=== PATIENT | female | born 2005 | race Caucasian/White ===

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

== ENCOUNTER 2023-11-25 17:03 | Emergency (ER) | payer OTHER, SELFPAY ==
[2023-11-25 17:15] VITALS: BP 157/92; PULSE 98; RESP 18; TEMP 36.6; O2SAT 99; BMI 30.6
--- NOTE | 2023-11-25 17:16 | ED_ITS ---
HPI - General Adult General Chief complaint: General Medical Stated complaint: ? uti Time Seen by Provider: 11/25/23 19:00 Source: patient and family (patient's mother) Mode of arrival: ambulatory Limitations: no limitations History of Present Illness ED Provider: Valerie Teixeira PA-C HPI narrative: Patient is a 18 year old assigned female at with no reported medical history presenting to the emergency department today with an itchy / burning rash around her vaginal area. Patient states that over the last week she has had a rash around her vaginal area with burning and itching. Patient denies any dizziness, lightheadedness, abdominal pain, nausea, vomiting, fever, chills, blurry vision, double vision, loss of vision, chest pain, difficulty breathing, shortness of breath, back pain, night sweats, pain with urination, increased urinary frequency, increased urinary urgency, blood in her urine or stool, syncope or a near syncopal episode, recent trauma or falls, bowel incontinence, bladder incontinence, or any other complaints at this time. Onset (ago): week(s) (1) Location: genitals Relieving factors: none Exacerbating factors: none Associated symptoms: rash Treatments prior to arrival: none Related Data Home Medications ?Medication ?Instructions ?Recorded ?Confirmed methimazole 5 mg tablet 2.5 mg PO DAILY 03/06/20 11/16/21 Previous Rx's ?Medication ?Instructions ?Recorded ondansetron 4 mg disintegrating 4 mg PO Q6-8H PRN nausea and 05/22/21 tablet vomiting #14 tabs cephalexin 500 mg capsule 500 mg PO BID #14 caps 12/21/21 prenat.vits,rehan,wgo-ecny-qxmaa 1 tab PO DAILY #90 tabs 12/21/21 morphine 15 mg immediate release 15 mg PO Q4-6H PRN pain #8 tabs 02/20/22 tablet cefuroxime axetil 500 mg tablet 500 mg PO BID #14 tabs 04/26/22 nitrofurantoin 100 mg PO Q12H 7 days #14 caps 06/24/22 monohydrate/macrocrystals 100 mg capsule (Macrobid) cefuroxime axetil 250 mg tablet 250 mg PO BID 7 days #14 tabs 11/25/23 fluconazole 150 mg tablet 150 mg PO Q3D 2 doses #2 tabs 11/25/23 Allergies Allergy/AdvReac Type Severity Reaction Status Date / Time No Known Allergies Allergy Verified 11/25/23 17:17 Review of Systems Constitutional: Constitutional: Reports no additional constitutional complaints, Denies chills, Denies fever(s) and Denies night sweats Eyes: Eyes: Reports no additional eye complaints, Denies blurry vision, Denies change in vision, Denies diplopia, Denies eye discharge, Denies loss of vision and Denies eye pain ENT: Denies dizziness Cardiovascular: Cardiovascular: Reports no additional cardiovascular complaints, Denies chest pain, Denies lightheadedness, Denies Loss of Consciousness and Denies dyspnea Respiratory: Respiratory: Reports no additional respiratory complaints and Denies dyspnea Gastrointestinal: Gastrointestinal: Reports no additional gastrointestinal complaints, Denies abdominal pain, Denies melena, Denies hematochezia, Denies change in bowel habits and Denies change in stool character Genitourinary: Genitourinary: Denies hematuria, Denies urinary frequency, Denies dysuria, Denies urinary incontinence, Denies urinary hesitancy, Denies urinary urgency and Reports vaginal pruritus Comments: vaginal rash Musculoskeletal: Musculoskeletal: Reports no additional musculoskeletal complaints, Denies numbness and Denies tingling Neurologic: Denies dizziness, Denies loss of vision, Denies numbness and Denies tingling Psychiatric: Psychiatric: Reports no additional psychiatric complaints Endocrine: Endocrine: Reports no additional endocrine complaints Hematologic/Lymphatic: Hematologic/Lymphatic: Reports no additional hemat ologic/lymphatic complaints Allergic/Immunologic: Allergic/Immunologic: Reports no additional allergic/immunologic complaints PMFSH Past Medical History Attestation statement: The following information was validated with the patient. (all information validated with the patient's mother) Source: old records reviewed, obtained from family (patient's mother provided additional history and confirmed the history provided by the patient) and nurs ing notes reviewed Medical History Graves disease Graves disease Social History Social History Household Members Other:: Lives w/ mom, brother Alcohol intake: never Patient Tobacco Use Status: Never used Tobacco Advance Directives: No Advance Directives Information Provided: No Physical Exam ED Vital Signs: Vital Signs - 24 hr 11/25/23 17:15 11/25/23 19:10 Temperature 98 F 98 F Pulse Rate 98 98 Respiratory Rate 18 18 Blood Pressure 157/92 H 157/92 H Pulse Oximetry 99 99 Oxygen Delivery Method Room Air Room Air BMI result Body Mass Index 30.6 Const General: cooperative, no acute distress, alert and awake Nutritional Appearance: well nourished Orientation/consciousness: patient oriented x3 Limitations: no limitations HENMT Head: Yes normal to inspection and Yes atraumatic Ears: hearing grossly normal bilaterally and external ears normal General nose exam: Normal external nose present, no nasal discharge noted and no epistaxis Face and sinus: Yes normal facial exam, No abrasion and No laceration Mouth: Normal oral and palatal mucosa present, no drooling and no muffled voice Eyes General: appearance normal, both eyes and all related structures Periorbital: periorbital findings normal Eyelids: Yes eyelids normal Conjunctivae: conjunctivae normal Pupils: Equal, round and reactive pupils present EOM: EOMs intact bilaterally Neck Neck: Yes normal visual inspection, Yes full ROM and Yes no lymphadenopathy Chest Chest palpation & inspection: normal inspection of the chest Resp Effort & Inspection: normal respiratory effort and able to speak in complete sentences GI Inspection: Yes normal to inspection Neuro General: patient oriented x3 and moves all extremities Cranial nerves: Yes Equal, round and reactive pupils present Cognition (Neuro): normal cognition Extrem General: Yes normal to inspection, Yes full ROM and Yes capillary refill normal Psych Appearance: grossly normal Mental Status: mental status grossly normal Affect: normal affect Attitude: cooperative Thought process: Normal thought process present Thought content: Normal thought content present Insight: Good insight present (Psych) Course Course Course Narrative: RME performed by Valerie Teixeira PA-C. Patient is a 18 year old assigned female at presenting to the emergency department with an itchy vaginal rash. Detailed physical exam and review of systems are deferred to the medical lab director. Labs ordered. Patient placed back in the waiting room pending room availability and results. Medical Decision Making Medical Decision Making MDM Narrative: Patient is a 18 year old assigned female at with no reported medical history presenting to the emergency department today with a rash to the vaginal area. Patient's physical exam was unremarkable. Patient deferred exam. Stephanie angel's urine showed a UTI and her vaginal swabs showed yeast. I explained my physical exam findings as well as all test results to the patient and the patient's mother. I answered all questions asked by the patient and the patient's mother. I stressed the importance of the patient taking her medication as directed (either prescribed or as the over the counter packaging recommends). I stressed the importance of the patient following up with her primary care provider. I stressed the importance of the patient returning to the emergency department immediately if her symptoms were to worsen or if she were to develop any dizziness, shortness of breath, difficulty breathing, chest pain, blurry vision, loss of vision, nausea, vomiting, abdominal pain, fever, chills, back pain, or any other complaints. Patient and the patient's mother verbalized agreement and understanding with this treatment plan and discharge. Differential Diagnosis Differential Diagnoses: The differential diagnosis associated with the presentation includes Yeast infection Urinary tract infection BV Admission/Observation Consideration of admission/observation: Escalation of care including admission/observation considered Patient would have been admitted to the hospital had her work up had any findings where hospital admission was appropriate and her clinical presentation warranted hospital admission. Lab Data [facility] Lab Attestation statement: I reviewed the patient's lab results. My interpretation of these results are in the [facility] Rationale portion of this note. Labs: Lab Results 11/25/23 Range/Units 17:44 Urine Color Yellow Urine Appearance Cloudy Urine pH 6.5 (5.0-9.0) Ur Specific [place] >= 1.030 H (1.005-1.025) Urine Protein 30 (1+) H (Neg-Trace) mg/dL Urine Glucose (UA) Negative (Negative) mg/dL Urine Ketones Negative (Negative) mg/dL Urine Blood Trace H (Negative) Urine Nitrite Negative (Negative) Ur Leukocyte Esterase Large (3+) H (Negative) Urine RBC >20 H (0-2) /HPF Urine WBC >50 H (0-5) /HPF Ur Squamous Epith Cells 11-20 (0-2) /HPF Urine Bacteria 2+ (None Seen) Hyaline Casts 0-2 (0-2) /LPF Independent Historian Clinical information obtained from an independent historian. History obtained from or confirmed by: Parent (patient's mother provided additional history and confirmed the history provided by the patient.) Prescription Management I considered prescription management with: Antibiotic (patient prescribed an antibiotic for UTI) and Other (patient prescribed an antifungal) Discharge Plan Discharge Clinical Impression: Yeast infection, UTI (urinary tract infection) Patient Disposition: Home, Self-Care Instructions: Urinary Tract Infection in Women (DC), Yeast Infection (ED) Additional Instructions: Follow up with your primary care provider. Return to the emergency department immediately if your symptoms worsen or if you develop any dizziness, shortness of breath, difficulty breathing, chest pain, blurry vision, loss of vision, nausea, vomiting, abdominal pain, fever, chills, back pain, or any other complaints. Prescriptions: New cefuroxime axetil 250 mg tablet 250 mg PO BID 7 Days Qty: 14 0RF fluconazole 150 mg tablet 150 mg PO Q3D Qty: 2 0RF No Action methimazole 5 mg tablet 2.5 mg PO DAILY ondansetron 4 mg tablet,disintegrating 4 mg PO Q6-8H PRN (Reason: nausea and vomiting) Qty: 14 0RF cefuroxime axetil 500 mg tablet 500 mg PO BID Qty: 14 0RF prenat.vits,rehan,wep-xarl-dkgnj Tablet 1 tab PO DAILY Qty: 90 0RF cephalexin 500 mg capsule 500 mg PO BID Qty: 14 0RF morphine 15 mg tablet 15 mg PO Q4-6H PRN (Reason: pain) Qty: 8 0RF Rx Instructions: The patient may ask for partial fill; Partial Fill upon patient request. nitrofurantoin monohyd/m-cryst [Macrobid] 100 mg capsule 100 mg PO Q12H 7 Days Qty: 14 0RF Rx Instructions: must administer with a meal/food Referrals: [facility] Family Medicine [Provider Group] (Call to establish and follow up with a primary care provider. If you already have a primary care provider, please follow up with them.) [facility] [Provider Group] (Call to establish and follow up with a primary care provider. If you already have a primary care provider, please follow up with them.) [facility] [Provider Group] (Call to establish and follow up with a primary care provider. If you already have a primary care provider, please follow up with them.) Interventions: ED Discharge Assessment Last Done: 11/25/23 19:10 Discharge Date/Time: 11/25/23 19:10 Print Language: Amharic
[2023-11-25 18:02] LABS: Appearance Urine Cloudy; Color Urine Yellow; Glucose Urine UA Negative (Negative); Leukocyte Esterase Urine Large (3+) (Negative); Nitrite Urine Negative (Negative); PH 6.5 (5.0-9.0); Specific Gravity - Urine >= 1.030 (1.005-1.025); UMIC TRIGGER UACC YES; Urine Blood Trace (Negative); Urine Ketones Negative (Negative); Urine Protein 30 (1+) mg/dL (Neg-Trace)
[2023-11-25 18:06] LABS: Bacteria Urine 2+ (None Seen); Hyaline Casts Urine 0-2 /LPF (0-2); RBC Urine >20 /HPF (0-2); UACC Culture Trigger YES; WBC Urine >50 /HPF (0-5)
[2023-11-25 19:10] VITALS: BP 157/92; PULSE 98; RESP 18; TEMP 36.6; O2SAT 99
[2023-11-26 11:36] LABS: CT PCR NOT DETECTED (Not Detect.); NG PCR NOT DETECTED (Not Detect.)
[2023-11-26 13:14] LABS: Bacterial Vaginosis PCR NEGATIVE (Negative); Candida Group PCR DETECTED (Not Detect); Candida glab krusei PCR NOT DETECTED (Not Detect); Trichomonas vaginalis PCR NOT DETECTED (Not Detect)
== END 2023-11-25 19:10 | disposition home or self-care (01) ==
PROVIDERS: Physician Assistant Medical; Emergency Provider Emergency Medicine; PCP Pediatrics
DX: B37.31 Acute candidiasis of vulva and vagina (principal); N39.0 Urinary tract infection, site not specified; L29.2 Pruritus vulvae; Z79.899 Other long term (current) drug therapy
CPT/HCPCS: 0352U; 81001; 87086; 87088; 87147; 87186; 87491; 87591; 99282; 99283

== ENCOUNTER 2024-02-18 16:49 | Emergency (ER) | payer OTHER, SELFPAY ==
--- NOTE | ~2024-02-18 | US_ITS ---
EXAMINATION: US OBSTETRICAL ULTRASOUND CLINICAL INFORMATION: patient with pain. COMPARISON: None available. LMP: December 31, 2023. Gestational age by maternal dates is 7 weeks and 0 days. Estimated date of delivery by maternal dates is October 06, 2024. TECHNIQUE: Transabdominal and transvaginal obstetrical ultrasound performed. FINDINGS: There is a single intrauterine gestational sac with visible yolk sac, embryo/fetus, and cardiac activity. There is no significant subchorionic hemorrhage or hematoma. HR: 130 beats per minute. CRL (crown rump length): 0.71 cm (6 weeks and 6 days +/- 4 days). DEANNA (estimated date of delivery): October 07, 2024 +/- 4 days. MATERNAL ADNEXA: The right maternal ovary measures 3.3 x 2.1 x 2.3 cm. Flow is demonstrated within the right ovary. The left maternal ovary measures 3.2 x 1.9 x 1.6 cm. ] Flow is demonstrated within the left ovary. There is no significant maternal adnexal mass. There is trace free fluid within the cul-de-sac. US/US OB pelvic and transvaginal IMPRESSION: 1. Single intrauterine gestation with ultrasound gestational age of 6 weeks and 6 days +/- 4 days. 2. Estimated date of delivery is October 07, 2024 +/- 4 days. Electronically signed by: Billy Fraga MD 02/19/2024 02:08 AM [facility]
[2024-02-18 16:54] VITALS: BP 143/84; PULSE 89; RESP 19; TEMP 36.6; O2SAT 98; BMI 31.2
[2024-02-18 17:28] LABS: Appearance Urine Cloudy; Color Urine Yellow; Glucose Urine UA Negative (Negative); Leukocyte Esterase Urine Large (3+) (Negative); Nitrite Urine Negative (Negative); UMIC TRIGGER UACC YES; Urine Blood Negative (Negative); Urine Ketones Negative (Negative); Urine Protein Trace mg/dL (Neg-Trace)
[2024-02-18 17:47] LABS: Anion Gap 7 (12-20); Blood Urea Nitrogen 7 mg/dL (9-16); Calcium 9.1 mg/dL (8.4-10.2); Carbon Dioxide 23 mmol/L (22-29); Chloride 107 mmol/L (96-108); Creatinine Clr Calc Pharmacy 160.5; Estimated Glomerular Filt Rate > 60; Glucose Random 95 mg/dL (60-115); Potassium 3.4 mmol/L (3.3-5.1); Sodium 134 mmol/L (135-145)
[2024-02-18 18:21] LABS: HCG Quantitative 43760 mIU/mL
[2024-02-18 18:33] LABS: Bacteria Urine 4+ (None Seen); Hyaline Casts Urine 0-2 /LPF (0-2); RBC Urine 0-2 /HPF (0-2); Squamous Epithelial Cell Urine >20 /HPF (0-2); UACC Culture Trigger YES; WBC Urine 21-50 /HPF (0-5)
[2024-02-18 18:52] LABS: Basophils Percent Auto 0.4 % (0-2); Eosinophils Absolute Auto 0.2 X10*3/uL (0.0-0.4); Eosinophils Percent Auto 1.9 % (0-4); Hematocrit 33.7 % (37.0-47.0); Hemoglobin 10.5 g/dl (12.0-16.0); Imm Gran Abs Auto 0.03 X10*3/uL (0.00-0.03); Imm Gran Pct Auto 0.3 % (0.0-0.4); Lymphocytes Absolute Auto 2.6 X10*3/uL (1.2-4.9); Lymphocytes Percent Auto 26.8 % (20-40); Mean Corpuscular HGB Conc 31.2 g/dl (31.0-35.0); Mean Corpuscular Hemoglobin 21.3 pg (27.0-33.0); Mean Corpuscular Volume 68.2 fL (80.0-98.0); Mean Platelet Volume 10.7 fL (9.4-12.3); Monocytes Absolute Auto 0.8 X10*3/uL (0.1-1.2); Monocytes Percent Auto 8.7 % (2-11); Neutrophils Absolute Auto 5.9 x10*3/uL (2.0-8.3); Neutrophils Percent Auto 61.9 % (45-73); Platelet Count 337 X10*3/uL (160-400); Red Blood Count 4.94 X10*6/uL (4.20-5.50); Red Cell Distribution Width 19.2 % (11.0-16.0); White Blood Count 9.5 X10*3/uL (4.8-10.8)
[2024-02-18 19:16] LABS: MANUAL DIFF FLAG NO
[2024-02-18 21:38] VITALS: BP 132/80; PULSE 78; RESP 18; TEMP 36.8; O2SAT 97
[2024-02-18 22:08] LABS: UPreg QC Valid YES; Urine Pregnancy POSITIVE (NEGATIVE)
--- NOTE | 2024-02-18 23:09 | ED_ITS ---
HPI - Abdominal Pain General Chief Complaint: Abdominal Pain Stated Complaint: Abd cramping - pt is Time Seen by Provider: 02/18/24 22:04 Source: patient Limitations: no limitations History of Present Illness ED Provider: Cyndi vega PA-C HPI narrative: 18-year-old otherwise healthy female who is known to be currently , with last menstrual period being December 30, presents with abdominal cramping since this morning. Denies vaginal bleeding. Denies nausea, vomiting, diarrhea or fever. No dysuria. Patient is yet to establish care, she has a 1st shot hole shooter appointment the beginning of March. Related Data Home Medications ?Medication ?Instructions ?Recorded ?Confirmed methimazole 5 mg tablet 2.5 mg PO DAILY 03/06/20 11/16/21 Previous Rx's ?Medication ?Instructions ?Recorded ondansetron 4 mg disintegrating 4 mg PO Q6-8H PRN nausea and 05/22/21 tablet vomiting #14 tabs cephalexin 500 mg capsule 500 mg PO BID #14 caps 12/21/21 prenat.vits,rehan,dxg-rxjz-hobtw 1 tab PO DAILY #90 tabs 12/21/21 morphine 15 mg immediate release 15 mg PO Q4-6H PRN pain #8 tabs 02/20/22 tablet cefuroxime axetil 500 mg tablet 500 mg PO BID #14 tabs 04/26/22 nitrofurantoin 100 mg PO Q12H 7 days #14 caps 06/24/22 monohydrate/macrocrystals 100 mg capsule (Macrobid) cefuroxime axetil 250 mg tablet 250 mg PO BID 7 days #14 tabs 11/25/23 fluconazole 150 mg tablet 150 mg PO Q3D 2 doses #2 tabs 11/25/23 vitamins no.144-folic 2 tab PO DAILY #60 tabs 02/18/24 acid 400 mcg chewable tablet () Allergies Allergy/AdvReac Type Severity Reaction Status Date / Time No Known Allergies Allergy Verified 02/18/24 16:57 Review of Systems Review of Systems Yes all other systems are reviewed and are negative Constitutional: Denies fatigue and Denies fever(s) Cardiovascular: Denies chest pain and Denies dyspnea Respiratory: Denies dyspnea Gastrointestinal: Reports abdominal pain, Denies nausea and Denies vomiting Genitourinary: Reports other (No vaginal bleeding) Endocrine: Denies fatigue PMFSH Past Medical History Attestation statement: The following information was validated with the patient. Medical History Graves disease Graves disease Social History Social History Household Members Other:: Lives w/ mom, brother Alcohol intake: never Patient Tobacco Use Status: Never used Tobacco Advance Directives: No Advance Directives Information Provided: No Do you have a plan to hurt others: No Plan Physical Exam ED Vital Signs: Vital Signs - 24 hr 02/18/24 16:54 02/18/24 21:38 Temperature 98 F 98.2 F Pulse Rate 89 78 Respiratory Rate 19 18 Blood Pressure 143/84 H 132/80 Pulse Oximetry 98 97 Oxygen Delivery Method Room Air Room Air BMI result Body Mass Index 31.2 Const Other: Alert, well in appearance Orientation/consciousness: patient oriented x3 Resp Other: Nonlabored respiration Cardio Other: Normal peripheral perfusion GI Other: Abdomen is soft, nondistended, no tenderness or guarding Skin Other: Warm dry no rash Neuro General: patient oriented x3, no focal motor deficits and CN's II-XI intact bilaterally Psych Other: Calm cooperative Medical Decision Making Medical Decision Making MDM Narrative: 18-year-old otherwise healthy female who is known to be currently , with last menstrual period being December 30, presents with abdominal cramping since this morning. Denies vaginal bleeding. Denies nausea, vomiting, diarrhea or fever. No dysuria. Patient is yet to establish care, she has a 1st shot hole shooter appointment the beginning of March. Problem: History: Per patient I have considered the following differential diagnoses: Threatened , ectopic, subchorionic hemorrhage, viral gastro, UTI Plan: Patient has no infectious symptoms. This is likely pain related to her early , she is not having any vaginal bleeding. A transvaginal ultrasound and screening labs were ordered from triage. I have independently reviewed the following tests: Labs: No leukocytosis, not anemic, no electrolyte abnormality, urine not infected it is contaminated, [id number] Transvaginal ultrasound: Radiology verbalize there was an active IUP with the appropriate heart rate measuring approximately 7 weeks plus, I am awaiting the formal read Lab Data 02/18/24 18:43 02/18/24 17:17 Labs: Lab Results 02/18/24 02/18/24 Range/Units 17:17 18:43 WBC 9.5 (4.8-10.8) X10*3/uL RBC 4.94 (4.20-5.50) X10*6/uL Hgb 10.5 L (12.0-16.0) g/dl Hct 33.7 L (37.0-47.0) % MCV 68.2 L (80.0-98.0) fL MCH 21.3 L (27.0-33.0) pg MCHC 31.2 (31.0-35.0) g/dl RDW 19.2 H (11.0-16.0) % Plt Count 337 (160-400) X10*3/uL MPV 10.7 (9.4-12.3) fL Immature Gran % (Auto) 0.3 (0.0-0.4) % Neut % (Auto) 61.9 (45-73) % Lymph % (Auto) 26.8 (20-40) % [place] % (Auto) 8.7 (2-11) % Eos % (Auto) 1.9 (0-4) % Baso % (Auto) 0.4 (0-2) % Lymph # (Auto) 2.6 (1.2-4.9) X10*3/uL [place] # (Auto) 0.8 (0.1-1.2) X10*3/uL Eos # (Auto) 0.2 (0.0-0.4) X10*3/uL Baso # (Auto) 0.0 (0.0-0.2) X10*3/uL Abs Immat Gran (auto) 0.03 (0.00-0.03) X10*3/uL Absolute Neuts (auto) 5.9 (2.0-8.3) x10*3/uL Absolute Nucleated RBC 0.000 (0.0-0.012) X10*3/uL Nucleated RBC % (auto) 0.0 (0.0-0.2) /100WBC Sodium 134 L (135-145) mmol/L Potassium 3.4 (3.3-5.1) mmol/L Chloride 107 (96-108) mmol/L Carbon Dioxide 23 (22-29) mmol/L Anion Gap 7 L (12-20) BUN 7 L (9-16) mg/dL Creatinine 0.56 (0.5-1.4) mg/dL Estim Creat Clear Calc 160.5 Estimated GFR > 60 Random Glucose 95 (60-115) mg/dL Calcium 9.1 (8.4-10.2) mg/dL Beta HCG, Quant 30438 mIU/mL Urine Color Yellow Urine Appearance Cloudy Urine pH 6.0 (5.0-9.0) Ur Specific [place] 1.020 (1.005-1.025) Urine Protein Trace (Neg-Trace) mg/dL Urine Glucose (UA) Negative (Negative) mg/dL Urine Ketones Negative (Negative) mg/dL Urine Blood Negative (Negative) Urine Nitrite Negative (Negative) Ur Leukocyte Esterase Large (3+) H (Negative) Urine RBC 0-2 (0-2) /HPF Urine WBC 21-50 H (0-5) /HPF Ur Squamous Epith Cells >20 (0-2) /HPF Urine Bacteria 4+ (None Seen) Hyaline Casts 0-2 (0-2) /LPF Urine Test POSITIVE H (NEGATIVE) Blood Type A Positive Discharge Plan Discharge Clinical Impression: and not yet delivered in first trimester Patient Disposition: Home, Self-Care Instructions: Abdominal Pain in (ED) Additional Instructions: All of your labs were normal, the ultrasound was normal as well. Women can have abdominal cramping early on in . See home care instructions. You are measuring per your stated dates. Take the vitamins throughout your . Prescriptions: New 400 mcg tablet,chewable 2 tab PO DAILY Qty: 60 0RF No Action methimazole 5 mg tablet 2.5 mg PO DAILY ondansetron 4 mg tablet,disintegrating 4 mg PO Q6-8H PRN (Reason: nausea and vomiting) Qty: 14 0RF cefuroxime axetil 500 mg tablet 500 mg PO BID Qty: 14 0RF prenat.vits,rehan,bqh-mkfr-cswoc Tablet 1 tab PO DAILY Qty: 90 0RF cephalexin 500 mg capsule 500 mg PO BID Qty: 14 0RF morphine 15 mg tablet 15 mg PO Q4-6H PRN (Reason: pain) Qty: 8 0RF Rx Instructions: The patient may ask for partial fill; Partial Fill upon patient request. nitrofurantoin monohyd/m-cryst [Macrobid] 100 mg capsule 100 mg PO Q12H 7 Days Qty: 14 0RF Rx Instructions: must administer with a meal/food cefuroxime axetil 250 mg tablet 250 mg PO BID 7 Days Qty: 14 0RF fluconazole 150 mg tablet 150 mg PO Q3D Qty: 2 0RF Stand Alone Forms: Work/School Release Interventions: ED Discharge Assessment Last Done: 02/18/24 23:49 Discharge Date/Time: 02/18/24 23:49 Print Language: Belarusian
[2024-02-18 23:44] VITALS: BP 139/94; PULSE 99; RESP 16; TEMP 36.3; O2SAT 97
[2024-02-18 23:49] VITALS: BP 139/94; PULSE 99; RESP 16; TEMP 36.3; O2SAT 97
== END 2024-02-18 23:49 | disposition home or self-care (01) ==
PROVIDERS: Emergency Provider Emergency Medicine; PCP Pediatrics
DX: O26.91 Pregnancy related conditions, unspecified, first trimester (principal); R10.2 Pelvic and perineal pain; Z3A.08 8 weeks gestation of pregnancy; Z79.899 Other long term (current) drug therapy
CPT/HCPCS: 36415; 76801; 76817; 80048; 81001; 81025; 84702; 85025; 86900; 86901; 87086; 99283; 99284

== ENCOUNTER 2024-08-11 18:22 | Emergency (ER) | payer OTHER, SELFPAY ==
[2024-08-11 18:28] VITALS: BP 144/94; PULSE 118; RESP 20; TEMP 36.1; O2SAT 99; BMI 34.3
--- NOTE | 2024-08-11 18:47 | ED.ALLEREA ---
HPI - Allergic Reaction General Chief complaint: Allergic Reaction Stated complaint: Allergic reaction Time Seen by Provider: 08/11/24 18:40 Source: patient Mode of arrival: ambulatory Limitations: no limitations History of Present Illness ED Provider: Dr. Xena Rabago HPI narrative: patient comes to the emergency room complaining of a strange sensation in her tongue, feels like bubbles are on my tongue . patient states that this happened within 5 minutes of eating peanut butter granola bar. Patient states that to her knowledge she has never been allergic to peanut butter before. However, she started 2 weeks of gestational age, patient got concerned that she was having an allergic reaction, did not want to take a chance and came to the emergency room. Patient denies any hives, denies any shortness of breath or difficulty breathing. Patient denies any vaginal leakage or blood or spotting. Related Data Home Medications ?Medication ?Instructions ?Recorded ?Confirmed methimazole 5 mg tablet 2.5 mg PO DAILY 03/06/20 11/16/21 Previous Rx's ?Medication ?Instructions ?Recorded ondansetron 4 mg disintegrating 4 mg PO Q6-8H PRN nausea and 05/22/21 tablet vomiting #14 tabs cephalexin 500 mg capsule 500 mg PO BID #14 caps 12/21/21 prenat.vits,rehan,[id number] 1 tab PO DAILY #90 tabs 12/21/21 morphine 15 mg immediate release 15 mg PO Q4-6H PRN pain #8 tabs 02/20/22 tablet cefuroxime axetil 500 mg tablet 500 mg PO BID #14 tabs 04/26/22 nitrofurantoin 100 mg PO Q12H 7 days #14 caps 06/24/22 monohydrate/macrocrystals 100 mg capsule (Macrobid) cefuroxime axetil 250 mg tablet 250 mg PO BID 7 days #14 tabs 11/25/23 fluconazole 150 mg tablet 150 mg PO Q3D 2 doses #2 tabs 11/25/23 vitamins no.144-folic 2 tab PO DAILY #60 tabs 02/18/24 acid 400 mcg chewable tablet () Allergies Allergy/AdvReac Type Severity Reaction Status Date / Time No Known Allergies Allergy Verified 08/11/24 18:31 Review of Systems Review of Systems: Constitutional : No Weight loss, No Fever, No Chills, No Night Sweats, No Fatigue, No Malaise ENT/Mouth Complaining of a weird sensation in tone, states that feels like there are bubbles on her tongue. No Hearing loss, No Ear Pain, No Nasal Congestion, No Sinus Pain, No Hoarseness, No sore throat, No Rhinorrhea, No Swallowing Difficulty Eyes: No Eye Pain, No Swelling, No Redness, No Foreign Body, No Discharge, No Vision Changes Cardiovascular : No Chest Pain, No SOB, No Dyspnea on Exertion, No Orthopnea, No Edema, No Palpitations Respiratory : No Cough, No Sputum, No Wheezing, No Smoke Exposure, No Dyspnea Gastrointestinal : No Nausea, No Vomiting, No Diarrhea, No Constipation, No abdominal Pain, No Hematochezia, No Melena Genitourinary : no irregular bleeding, No Dysuria, No Urinary Frequency, No Hematuria, No Urinary Incontinence, No Urgency, No Flank Pain, No Urinary Flow Changes, No Hesitancy Musculoskeletal : No joint pain, No Myalgias, No Joint Swelling Skin : No Skin Lesions, No rash Neuro : No Weakness, No Numbness, No Paresthesias, No Loss of Consciousness, No Dizziness, No Headache Psych : No Anxiety/Panic, No Depression, No SI/HI/AH/VH, No Social Issues, Heme/Lymph: No Bruising, No Bleeding,No Lymphadenopathy Endocrine : No Polyuria, No Polydipsia, No Temperature Intolerance [facility] Past Medical History Medical History Graves disease Graves disease Social History Social History Household Members Other:: Lives w/ mom, brother Alcohol intake: never Patient Tobacco Use Status: Never used Tobacco Smoked in Last 30 Days: No Use of substances other than those prescribed or required for medical reasons: No Advance Directives: No Advance Directives Information Provided: No Physical Exam ED Vital Signs: Vital Signs - 24 hr 08/11/24 18:28 08/11/24 19:57 Temperature 97 F Pulse Rate 118 H 100 Respiratory Rate 20 16 Blood Pressure 144/94 H 143/90 H Pulse Oximetry 99 98 Oxygen Delivery Method Room Air Room Air BMI result Body Mass Index 34.3 Const Other: Appearance: Alert. Oriented X3. No acute distress. Eyes: Pupils equal, round and reactive to light. ENT: Pharynx normal. No angioedema, multiple small and superficial bite martinez on the tongue Neck: Normal inspection. Neck supple. No lymph nodes noted. No crepitus CVS: Normal heart rate and rhythm. Pulses normal. Normal S1 and S2 Respiratory: No respiratory distress. Breath sounds normal. No Wheezing. No rales Abdomen: Soft and nontender. gravid uterus, well above the umbilicus, bedside ultrasound shows a heart rate of 120 to 130, good movement Skin: Skin warm and dry. Normal skin color. Normal skin turgor. Extremities: No lower extremity edema. No Lacerations. No Rash Neuro: Oriented X 3. No motor deficit. No sensory deficit. Moving all extremities. No slurred speech. CN 2 through 12 grossly intact Psych: calm, cooperative, normal affect Course Course Course Narrative: patient's physical exam is normal, no wheezing, no angioedema, no hives. Patient states that she has a weird sensation on her tongue patient has no angioedema, however she does have multiple superficial bite martinez on the tongue. No signs of seizures. Patient states that she feels something waiting her tongue after eating. Better. Therefore, we will proceed and treat as an allergic reaction. Patient getting IV fluids, diphenhydramine, famotidine and Solu-Medrol Medications Administered Discontinued Medications Generic Name Dose Route Start Last Admin Trade Name Freq PRN Reason Stop Dose Admin Diphenhydramine HCl 50 mg 08/11/24 18:46 08/11/24 19:20 Diphenhydramine Hcl 50 Mg/Ml Vial IVPUSH 08/11/24 18:47 50 mg ONCE ONE Administration Famotidine 20 mg/ Sodium 52 mls @ 200 mls/hr 08/11/24 19:00 08/11/24 19:39 Chloride IV 08/11/24 19:15 Infused ONCE ONE Infusion Sodium Chloride 500 mls @ 999 mls/hr 08/11/24 19:03 08/11/24 19:54 Ns IVCONT 08/11/24 19:33 Infused .Q31M ONE Infusion Methylprednisolone Sodium Succinate 125 mg 08/11/24 18:46 08/11/24 19:20 Methylprednisolone Sod Succ 125 Mg Vial IVPUSH 08/11/24 18:47 125 mg ONCE ONE Administration Medical Decision Making Medical Decision Making [facility] Narrative: my interpretation of labs: Patient's hemoglobin is 8.9. Patient has been anemic through her . Also, patient is chronically anemic since at least 2021, low MCV. Chemistry does not show any acute abnormalities. Normal LFTs patient states that after the above-mentioned treatment, she feels much better. No longer having any foreign body sensation of the throat or trauma bubbling, no difficulty breathing. It was noted the patient's blood pressures is in the 140s. I discussed this with the patient. Patient states that throughout all of her her blood pressures have been in the 120s systolic. Patient has not had any issues with blood pressure. Patient has an appointment in 2 days with her OBGYN. At this time, we will not start any blood pressure medications, it may be white coat syndrome? Or just from being here in the emergency room. As mentioned above, seems that patient has elevated blood pressure from today situational Differential Diagnosis Differential Diagnoses: The differential diagnosis associated with the presentation includes ( anxiety, allergic reaction, anaphylaxis) Admission/Observation Consideration of admission/observation: Escalation of care including admission/observation considered ( given patient's complaints, observation was considered) Lab Data MDM Lab Attestation statement: I reviewed the patient's lab results. 08/11/24 19:17 08/11/24 19:17 Labs: Lab Results 08/11/24 Range/Units 19:17 WBC 9.7 (4.8-10.8) X10*3/uL RBC 4.25 (4.20-5.50) X10*6/uL Hgb 8.9 L (12.0-16.0) g/dl Hct 29.1 L (37.0-47.0) % MCV 68.5 L (80.0-98.0) fL MCH 20.9 L (27.0-33.0) pg MCHC 30.6 L (31.0-35.0) g/dl RDW 18.5 H (11.0-16.0) % Plt Count 184 D (160-400) X10*3/uL MPV Not Reportable Immature Gran % (Auto) 0.5 H (0.0-0.4) % Neut % (Auto) 70.2 (45-73) % Lymph % (Auto) 19.9 L (20-40) % [place] % (Auto) 8.0 (2-11) % Eos % (Auto) 1.2 (0-4) % Baso % (Auto) 0.2 (0-2) % Lymph # (Auto) 1.9 (1.2-4.9) X10*3/uL [place] # (Auto) 0.8 (0.1-1.2) X10*3/uL Eos # (Auto) 0.1 (0.0-0.4) X10*3/uL Baso # (Auto) 0.0 (0.0-0.2) X10*3/uL Abs Immat Gran (auto) 0.05 H (0.00-0.03) X10*3/uL Absolute Neuts (auto) 6.8 (2.0-8.3) x10*3/uL Absolute Nucleated RBC 0.000 (0.0-0.012) X10*3/uL Nucleated RBC % (auto) 0.0 (0.0-0.2) /100WBC Smear Tech's Comments VERIFIED Sodium 139 (135-145) mmol/L Potassium 3.3 (3.3-5.1) mmol/L Chloride 109 H (96-108) mmol/L Carbon Dioxide 21 L (22-29) mmol/L Anion Gap 12 (12-20) BUN 4 L (9-16) mg/dL Creatinine 0.46 L (0.5-1.4) mg/dL Estim Creat Clear Calc 212.8 Estimated GFR > 60 Random Glucose 106 (60-115) mg/dL Calcium 9.4 (8.4-10.2) mg/dL Total Bilirubin 0.2 (0.0-1.0) mg/dL Direct Bilirubin < 0.2 (0.0-0.5) mg/dL AST 14 (5-31) U/L ALT 6 (0-31) U/L Alkaline Phosphatase 114 (39-117) U/L Total Protein 6.8 (6.5-8.0) g/dL Albumin 3.4 L (3.5-5.0) g/dL Critical Care Time Critical Care Time Critical Care Time: Yes Total Critical Care Time: 45 Attestation: I have personally provided critical care time. Time includes review of lab data, radiology results, discussion with consultants, and monitoring for potential decompensation. Intervention performed as documented. Discharge Plan Discharge Clinical Impression: Allergic reaction Patient Disposition: Home, Self-Care Instructions: General Allergic Reaction (ED) Additional Instructions: Please follow-up with your primary care physician tomorrow. If you have any worsening or new symptoms, please return to the emergency room or call 911 Prescriptions: No Action methimazole 5 mg tablet 2.5 mg PO DAILY ondansetron 4 mg tablet,disintegrating 4 mg PO Q6-8H PRN (Reason: nausea and vomiting) Qty: 14 0RF cefuroxime axetil 500 mg tablet 500 mg PO BID Qty: 14 0RF prenat.vits,rehan,[id number]-[id number] Tablet 1 tab PO DAILY Qty: 90 0RF cephalexin 500 mg capsule 500 mg PO BID Qty: 14 0RF morphine 15 mg tablet 15 mg PO Q4-6H PRN (Reason: pain) Qty: 8 0RF Rx Instructions: The patient may ask for partial fill; Partial Fill upon patient request. nitrofurantoin monohyd/m-cryst [Macrobid] 100 mg capsule 100 mg PO Q12H 7 Days Qty: 14 0RF Rx Instructions: must administer with a meal/food cefuroxime axetil 250 mg tablet 250 mg PO BID 7 Days Qty: 14 0RF fluconazole 150 mg tablet 150 mg PO Q3D Qty: 2 0RF 400 mcg tablet,chewable 2 tab PO DAILY Qty: 60 0RF Print Language: Montenegrin
[2024-08-11] MEDS: Famotidine/PF 20 MG in 0.9 % Sodium Chloride 50 ML 200 MG IV (19:19)
[2024-08-11] MEDS: 0.9 % Sodium Chloride 500 ML 999 ML IVCONT (19:19)
[2024-08-11] MEDS: diphenhydrAMINE HCL 50 MG/ML VIAL IVPUSH (19:20)
[2024-08-11 19:36] LABS: Basophils Percent Auto 0.2 % (0-2); Eosinophils Absolute Auto 0.1 X10*3/uL (0.0-0.4); Eosinophils Percent Auto 1.2 % (0-4); Lymphocytes Absolute Auto 1.9 X10*3/uL (1.2-4.9); Mean Corpuscular HGB Conc 30.6 g/dl (31.0-35.0); Mean Corpuscular Volume 68.5 fL (80.0-98.0)
[2024-08-11 19:38] LABS: Hematocrit 29.1 % (37.0-47.0); Hemoglobin 8.9 g/dl (12.0-16.0); Imm Gran Abs Auto 0.05 X10*3/uL (0.00-0.03); Imm Gran Pct Auto 0.5 % (0.0-0.4); Lymphocytes Percent Auto 19.9 % (20-40); Mean Corpuscular Hemoglobin 20.9 pg (27.0-33.0); Monocytes Absolute Auto 0.8 X10*3/uL (0.1-1.2); Neutrophils Absolute Auto 6.8 x10*3/uL (2.0-8.3); Neutrophils Percent Auto 70.2 % (45-73); PLT CLUMP 1; Red Blood Count 4.25 X10*6/uL (4.20-5.50); Red Cell Distribution Width 18.5 % (11.0-16.0)
[2024-08-11 19:45] LABS: Alanine Aminotransferase 6 U/L (0-31); Albumin Level 3.4 g/dL (3.5-5.0); Alkaline Phosphatase 114 U/L (39-117); Anion Gap 12 (12-20); Aspartate Amino Transferase 14 U/L (5-31); Bilirubin Direct < 0.2 mg/dL (0.0-0.5); Bilirubin Total 0.2 mg/dL (0.0-1.0); Blood Urea Nitrogen 4 mg/dL (9-16); Calcium 9.4 mg/dL (8.4-10.2); Carbon Dioxide 21 mmol/L (22-29); Chloride 109 mmol/L (96-108); Creatinine Clr Calc Pharmacy 212.8; Estimated Glomerular Filt Rate > 60; Glucose Random 106 mg/dL (60-115); Potassium 3.3 mmol/L (3.3-5.1); Sodium 139 mmol/L (135-145); Total Protein 6.8 g/dL (6.5-8.0)
[2024-08-11 19:57] VITALS: BP 143/90; PULSE 100; RESP 16; O2SAT 98
[2024-08-11 20:00] LABS: Platelet Count 184 X10*3/uL (160-400); White Blood Count 9.7 X10*3/uL (4.8-10.8)
[2024-08-11 20:06] LABS: MANUAL DIFF FLAG SCAN; SCAN SMEAR FLAG 1
[2024-08-11 20:09] LABS: PLT ABN DIST 1
[2024-08-11 20:41] LABS: SLIDE REVIEW VERIFIED
[2024-08-11 21:05] VITALS: BP 143/90; PULSE 100; RESP 16; TEMP 36.7; O2SAT 98
== END 2024-08-11 21:06 | disposition home or self-care (01) ==
PROVIDERS: Emergency Provider Emergency Medicine; PCP Pediatrics
DX: T78.1XXA Other adverse food reactions, not elsewhere classified, initial encounter (principal); T78.3XXA Angioneurotic edema, initial encounter; X58.XXXA Exposure to other specified factors, initial encounter; Z79.899 Other long term (current) drug therapy; R11.0 Nausea
CPT/HCPCS: 36415; 80048; 80076; 85025; 96361; 96374; 96375; 99284; J1200; J1308; J2919